=== PATIENT | male | born 1965 | race African-American/Black ===

== ENCOUNTER → 2021-12-29 | Day surgery (SDC) | payer BC ==
[~2021-12-29] MED LIST: LIDOCAINE HCL 2% LOCAL INJ 5 ML SDV VIAL INJ ONE; NOVOLIN N100 UNIT/4; PROPOFOL IV EMULSION 10 MG/ML 20 ML VIAL ONE
[2021-12-29 11:50] VITALS: BP 130/80
== END | disposition home or self-care (01) ==
LOC: OR 08:11
PROVIDERS: ATTEND Internal Medicine Gastroenterology
DX: Z12.11 Encounter for screening for malignant neoplasm of colon (principal); D12.3 Benign neoplasm of transverse colon; K64.8 Other hemorrhoids; R10.9 Unspecified abdominal pain; I10 Essential (primary) hypertension; E11.9 Type 2 diabetes mellitus without complications; R01.1 Cardiac murmur, unspecified; Z01.810 Encounter for preprocedural cardiovascular examination; Z01.812 Encounter for preprocedural laboratory examination; Z20.822 Contact with and (suspected) exposure to COVID-19; Z79.4 Long term (current) use of insulin; Z68.42 Body mass index [BMI] 45.0-49.9, adult
CPT/HCPCS: 36415; 45384; 82948; 93005; J2001; J2704; U0002; 45378